=== PATIENT | male | born 1975 ===

== ENCOUNTER 2016-12-24 06:31 | Day surgery (SDC) | payer OTHER ==
[2016-12-21 10:23] VITALS: BMI 33.1
[2016-12-24 07:22] LABS: ADD MANUAL DIFF? NO
[2016-12-24 07:26] LABS: BASO # 0.04 K/mm3 (0.0-2.0); BASO % 0.5 % (0.0-3.0); EOS # 0.1 (0.0-0.7); EOS % 0.6 % (1.5-5.0); GRAN # 3.33 (1.4-6.5); GRAN % 41.1 % (50.0-68.0); HEMATOCRIT 41.2 % (42.0-52.0); LYMPH # 4.1 (1.2-3.4); LYMPH % 50.1 % (22.0-35.0); MEAN CELL VOLUME 87.7 fL (80.0-105.0); MEAN CORPUSCULAR HEMOGLOBIN 30.6 pg (25.0-35.0); MEAN PLATELET VOLUME 9.6 fl (7.0-11.0); MONO # 0.6 (0.1-0.6); MONO % 7.7 % (1.0-6.0); PLATELET COUNT 231 10^3/uL (120.0-450.0); RED CELL DISTRIBUTION WIDTH 12.8 % (11.5-14.5); WHITE BLOOD COUNT 8.1 10^3/ul (4.5-11.0)
[2016-12-24 07:35] LABS: INR 0.99 (0.93-1.08); PARTIAL THROMBOPLASTIN TIME 26.8 Seconds (23.7-30.8)
[2016-12-24 07:43] LABS: ALB/GLOB RATIO 1.5 (1.1-1.8); ALKALINE PHOSPHATASE 64 U/L (38-133); ALT/SGPT 35 U/L (7-56); AST/SGOT 31 U/L (15-59); BILIRUBIN,TOTAL 0.3 mg/dL (0.2-1.3); BLOOD UREA NITROGEN 20 mg/dL (7-21); CALCIUM 9.4 mg/dL (8.4-10.5); CARBON DIOXIDE 29 mmol/L (21-33); CHLORIDE 102 mmol/L (95-110); GFR AFRICAN-AMERICAN > 60; GLUCOSE,RANDOM 95 mg/dL (70-110); POTASSIUM 4.5 mmol/L (3.6-5.0); SODIUM 139 mmol/L (132-148); TOTAL PROTEIN 7.3 g/dL (5.8-8.3)
[2016-12-24] MEDS ORDERED: Iodixanol 320 MG/ML 200 ML BOTTLE IV ONE (07:55)
[2016-12-24] MEDS ORDERED: Lidocaine 2% Inj (20ml) ONE (07:56)
[2016-12-24] MEDS ORDERED: Iohexol 350mgl/ml 50 ML ONE (08:54)
[2016-12-24] MEDS ORDERED: Midazolam 2 MG/2 ML VIAL ONE ×2 (09:22→09:57)
[2016-12-24] MEDS ORDERED: Sodium Chloride 0.9% 1,000 ML IV SCH (10:45)
[2016-12-24 10:50] VITALS: TEMP 97.7
--- NOTE | 2016-12-24 12:05 | CARD ---
APPROVED REPORT EKG Measurement Heart [id number] <Conclusion> Sinus bradycardia Minimal voltage criteria for LVH, may be normal variant Borderline ECG
[2016-12-24 13:32] VITALS: RESP 16
[2016-12-24 13:59] VITALS: O2SAT 99
[2016-12-24 15:47] VITALS: BP 128/83; PULSE 68
== END 2016-12-24 17:00 | disposition home or self-care (01) ==
LOC: CATH 06:31
PROVIDERS: ATTEND Internal Medicine Cardiovascular Disease
DX: I25.10 Atherosclerotic heart disease of native coronary artery without angina pectoris (principal)
CPT/HCPCS: 36415; 80053; 85025; 85610; 85730; 86850; 86900; 93005; 93458; 99152; C1760; C1769; C2629; J1644; J2250; J3010; J7040 ×2